=== PATIENT | male | born 1945 | race Caucasian/White ===

== ENCOUNTER 2018-11-26 15:31 | Observation (INO) | payer OTHER, MEDICARE ==
[2018-11-26] MEDS ORDERED: Sodium Chloride 0.9% 2.5 ML Syringe FLUSH PRN (15:34)
[2018-11-26] MEDS ORDERED: Sodium Chloride 0.9% 10 ML Syringe FLUSH PRN (15:34)
--- NOTE | 2018-11-26 15:34 | EDM.PDOC ---
ED HPI GENERAL MEDICAL PROBLEM - General Chief Complaint: Cardiovascular Problem Stated Complaint: AMB Time Seen by Provider: 11/26/18 15:32 - History of Present Illness INITIAL COMMENTS - FREE TEXT/NARRATIVE: HISTORY AND PHYSICAL: History of present illness: Patient is 73-year-old white male with past medical history significant for cardiac pacemaker who presents after having had a syncopal episode while driving with his daughter she states he had approximately 3 minutes of unresponsiveness there was reported snoring during this episode but upon arrival patient has no complaints other than the need to urinate there is no seizure activity noted there is no recent trauma or other concern patient denies chest pain shortness of breath palpitations diaphoresis or other concern Review of systems: As per history of present illness and below otherwise all systems reviewed and negative. Past medical history: As per history of present illness and as reviewed below otherwise noncontributory. Surgical history: As per history of present illness and as reviewed below otherwise noncontributory. Social history: No reported history of drug or alcohol abuse. Family history: As per history of present illness and as reviewed below otherwise noncontributory. Physical exam: HEENT: Atraumatic, normocephalic, pupils reactive, negative for conjunctival pallor or scleral icterus, mucous membranes moist, throat clear, neck supple, nontender, trachea midline. Lungs: Clear to auscultation, breath sounds equal bilaterally, chest nontender. Heart: S1S2, regular, negative for clicks, rubs, or JVD. Abdomen: Soft, nondistended, nontender. Negative for masses or hepatosplenomegaly. Negative for costovertebral tenderness. Pelvis: Stable nontender. Genitourinary: Deferred. Rectal: Deferred. Extremities: Atraumatic, negative for cords or calf pain. Neurovascular unremarkable. Neuro: Awake, alert, oriented. Cranial nerves II through XII unremarkable. Cerebellum unremarkable. Motor and sensory unremarkable throughout. Exam nonfocal. Diagnostics: CBC CMP troponin PT/INR chest x-ray EKG CT brain Therapeutics: IV O2 monitor Impression: #1 syncope Definitive disposition and diagnosis as appropriate pending reevaluation and review of above. - Related Data Allergies Allergy/AdvReac Type Severity Reaction Status Date / Time No Known Allergies Allergy Verified 11/26/18 16:29 Home Meds: Home Meds Aspirin 81 mg PO DAILY 11/26/18 [History] Bumetanide [Bumex] 2 mg PO BID 11/26/18 [History] Dabigatran [Pradaxa] 150 mg PO BID 11/26/18 [History] Non-Formulary Medication [NF Drug] 11/26/18 [History] Potassium Chloride 20 meq PO TID 11/26/18 [History] Sertraline HCl [Zoloft] 100 mg PO DAILY 11/26/18 [History] Tamsulosin [Flomax] 1 cap PO DAILY 11/26/18 [History] atorvaSTATin Calcium [Lipitor] 40 mg PO DAILY 11/26/18 [History] ED ROS GENERAL - Review of Systems Review Of Systems: ROS reveals no pertinent complaints other than HPI. ED EXAM, GENERAL - Physical Exam Exam: See Below (The dictation) Course - Vital Signs Last Recorded V/S: Last Vital Signs Temp 36.5 C 11/26/18 15:35 Pulse 78 11/26/18 15:35 Resp 20 11/26/18 15:35 BP 108/65 11/26/18 15:35 Pulse Ox 95 11/26/18 15:35 - Orders/Labs/Meds Orders: Active Orders 24 hr Category Date Time Status EKG 12 Lead [EKG Documentation Completion] [RC] STAT Care 11/26/18 15:32 Active B-TYPE NATRIURETIC PEPTIDE,BNP [CHEM] Stat Lab 11/26/18 16:20 Received PROLACTIN [CHEM] Stat Lab 11/26/18 17:00 Ordered Sodium Chloride 0.9% [Normal Saline] 1,000 ml Med 11/26/18 15:45 Active IV ASDIRECTED Sodium Chloride 0.9% [Saline Flush] Med 11/26/18 15:34 Active 10 ml FLUSH ASDIRECTED PRN Sodium Chloride 0.9% [Saline Flush] Med 11/26/18 15:34 Active 2.5 ml FLUSH ASDIRECTED PRN Saline Lock Insert [OM.PC] Stat Oth 11/26/18 15:34 Ordered Medication Orders Sodium Chloride (Normal Saline) 1,000 mls @ 125 mls/hr IV ASDIRECTED FRANCES Sodium Chloride (Saline Flush) 10 ml FLUSH ASDIRECTED PRN PRN Reason: Keep Vein Open Sodium Chloride (Saline Flush) 2.5 ml FLUSH ASDIRECTED PRN PRN Reason: Keep Vein Open Labs: Laboratory Tests 11/26/18 11/26/18 11/26/18 Range/Units 16:00 16:20 16:20 WBC 6.89 (4.0-11.0) K/uL RBC 3.41 L (4.50-5.90) M/uL Hgb 9.8 L (13.0-17.0) g/dL Hct 31.4 L (38.0-50.0) % MCV 92.1 (80.0-98.0) fL MCH 28.7 (27.0-32.0) pg MCHC 31.2 (31.0-37.0) g/dL RDW Std Deviation 45.6 (28.0-62.0) fl RDW Coeff of Jennifer 14 (11.0-15.0) % Plt Count 213 (150-400) K/uL MPV 10.30 (7.40-12.00) fL Neut % (Auto) 67.3 (48.0-80.0) % Lymph % (Auto) 14.7 L (16.0-40.0) % [place] % (Auto) 13.9 (0.0-15.0) % Eos % (Auto) 3.5 (0.0-7.0) % Baso % (Auto) 0.6 (0.0-1.5) % Neut # (Auto) 4.6 (1.4-5.7) K/uL Lymph # (Auto) 1.0 (0.6-2.4) K/uL [place] # (Auto) 1.0 H (0.0-0.8) K/uL Eos # (Auto) 0.2 (0.0-0.7) K/uL Baso # (Auto) 0.0 (0.0-0.1) K/uL Nucleated RBC % 0.0 /100WBC Nucleated RBCs # 0 K/uL INR 2.13 Sodium (136-148) mmol/L Potassium (3.5-5.1) mmol/L Chloride (98-107) mmol/L Carbon Dioxide (21.0-32.0) mmol/L BUN (7.0-18.0) mg/dL Creatinine (0.8-1.3) mg/dL Est Cr Clr Drug Dosing mL/min Estimated GFR (MDRD) ml/min Glucose (74-106) mg/dL Calcium (8.5-10.1) mg/dL Total Bilirubin (0.2-1.0) mg/dL AST (15-37) IU/L ALT (14-63) IU/L Alkaline Phosphatase (46-116) U/L Troponin I (0.000-0.056) ng/mL Total Protein (6.4-8.2) g/dL Albumin (3.4-5.0) g/dL Globulin (2.6-4.0) g/dL Albumin/Globulin Ratio (0.9-1.6) Urine Color YELLOW Urine Appearance CLEAR Urine pH 7.0 (5.0-8.0) Ur Specific [place] 1.015 (1.001-1.035) Urine Protein TRACE H (NEGATIVE) mg/dL Urine Glucose (UA) NEGATIVE (NEGATIVE) mg/dL Urine Ketones NEGATIVE (NEGATIVE) mg/dL Urine Occult Blood NEGATIVE (NEGATIVE) Urine Nitrite NEGATIVE (NEGATIVE) Urine Bilirubin NEGATIVE (NEGATIVE) Urine Urobilinogen 0.2 (<2.0) EU/dL Ur Leukocyte Esterase NEGATIVE (NEGATIVE) Urine RBC 0-1 (0-2/HPF) Urine WBC 0-1 (0-5/HPF) Ur Epithelial Cells RARE (NONE-FEW) Urine Bacteria RARE (NEGATIVE) 11/26/18 Range/Units 16:20 WBC (4.0-11.0) K/uL RBC (4.50-5.90) M/uL Hgb (13.0-17.0) g/dL Hct (38.0-50.0) % MCV (80.0-98.0) fL MCH (27.0-32.0) pg MCHC (31.0-37.0) g/dL RDW Std Deviation (28.0-62.0) fl RDW Coeff of Jennifer (11.0-15.0) % Plt Count (150-400) K/uL MPV (7.40-12.00) fL Neut % (Auto) (48.0-80.0) % Lymph % (Auto) (16.0-40.0) % [place] % (Auto) (0.0-15.0) % Eos % (Auto) (0.0-7.0) % Baso % (Auto) (0.0-1.5) % Neut # (Auto) (1.4-5.7) K/uL Lymph # (Auto) (0.6-2.4) K/uL [place] # (Auto) (0.0-0.8) K/uL Eos # (Auto) (0.0-0.7) K/uL Baso # (Auto) (0.0-0.1) K/uL Nucleated RBC % /100WBC Nucleated RBCs # K/uL INR Sodium 143 (136-148) mmol/L Potassium 3.3 L (3.5-5.1) mmol/L Chloride 104 (98-107) mmol/L Carbon Dioxide 31.7 (21.0-32.0) mmol/L BUN 18 (7.0-18.0) mg/dL Creatinine 1.0 (0.8-1.3) mg/dL Est Cr Clr Drug Dosing 70.06 mL/min Estimated GFR (MDRD) > 60.0 ml/min Glucose 109 H (74-106) mg/dL Calcium 9.2 (8.5-10.1) mg/dL Total Bilirubin 0.9 (0.2-1.0) mg/dL AST 18 (15-37) IU/L ALT 13 L (14-63) IU/L Alkaline Phosphatase 268 H (46-116) U/L Troponin I 0.074 H* (0.000-0.056) ng/mL Total Protein 6.9 (6.4-8.2) g/dL Albumin 3.1 L (3.4-5.0) g/dL Globulin 3.8 (2.6-4.0) g/dL Albumin/Globulin Ratio 0.8 L (0.9-1.6) Urine Color Urine Appearance Urine pH (5.0-8.0) Ur Specific [place] (1.001-1.035) Urine Protein (NEGATIVE) mg/dL Urine Glucose (UA) (NEGATIVE) mg/dL Urine Ketones (NEGATIVE) mg/dL Urine Occult Blood (NEGATIVE) Urine Nitrite (NEGATIVE) Urine Bilirubin (NEGATIVE) Urine Urobilinogen (<2.0) EU/dL Ur Leukocyte Esterase (NEGATIVE) Urine RBC (0-2/HPF) Urine WBC (0-5/HPF) Ur Epithelial Cells (NONE-FEW) Urine Bacteria (NEGATIVE) Meds: Medications Generic Name Dose Route Start Last Admin Trade Name Radha PRN Reason Stop Dose Admin Sodium Chloride 1,000 mls @ 125 mls/hr 11/26/18 15:45 Normal Saline IV ASDIRECTED FRANCES Sodium Chloride 10 ml 11/26/18 15:34 Saline Flush FLUSH ASDIRECTED PRN Keep Vein Open Sodium Chloride 2.5 ml 11/26/18 15:34 Saline Flush FLUSH ASDIRECTED PRN Keep Vein Open Discontinued Medications Generic Name Dose Route Start Last Admin Trade Name Radha PRN Reason Stop Dose Admin Ondansetron HCl 4 mg 11/26/18 15:47 11/26/18 16:00 Zofran IVPUSH 11/26/18 15:48 4 mg ONETIME ONE Administration Ondansetron HCl Confirm 11/26/18 15:49 11/26/18 16:00 Zofran Administered 11/26/18 15:50 Not Given Dose 4 mg .ROUTE .STK-MED ONE Departure - Departure Time of Disposition: 17:00 Disposition: Refer to Observation Condition: Good Clinical Impression: Syncope, Elevated troponin, History of CHF (congestive heart failure) Forms: ED Department Discharge - My Orders Last 24 Hours: My Active Orders 11/26/18 15:32 EKG 12 Lead [EKG Documentation Completion] [RC] STAT 11/26/18 15:34 Sodium Chloride 0.9% [Saline Flush] 10 ml FLUSH ASDIRECTED PRN Sodium Chloride 0.9% [Saline Flush] 2.5 ml FLUSH ASDIRECTED PRN Saline Lock Insert [OM.PC] Stat 11/26/18 15:45 Sodium Chloride 0.9% [Normal Saline] 1,000 ml IV ASDIRECTED 11/26/18 16:20 B-TYPE NATRIURETIC PEPTIDE,BNP [CHEM] Stat 11/26/18 17:00 PROLACTIN [CHEM] Stat - Assessment/Plan Last 24 Hours: My Active Orders 11/26/18 15:32 EKG 12 Lead [EKG Documentation Completion] [RC] STAT 11/26/18 15:34 Sodium Chloride 0.9% [Saline Flush] 10 ml FLUSH ASDIRECTED PRN Sodium Chloride 0.9% [Saline Flush] 2.5 ml FLUSH ASDIRECTED PRN Saline Lock Insert [OM.PC] Stat 11/26/18 15:45 Sodium Chloride 0.9% [Normal Saline] 1,000 ml IV ASDIRECTED 11/26/18 16:20 B-TYPE NATRIURETIC PEPTIDE,BNP [CHEM] Stat 11/26/18 17:00 PROLACTIN [CHEM] Stat
[2018-11-26] MEDS ORDERED: Ondansetron 4 MG/2 ML SDV IVPUSH ONE (15:47)
[2018-11-26] MEDS ORDERED: Ondansetron 4 MG/2 ML SDV ONE (15:49)
[2018-11-26] MEDS: Sodium Chloride 0.9% 1,000 ML IV SCH ×2 (16:00→19:37)
--- NOTE | 2018-11-26 16:15 | CT ---
INDICATION: Syncope TECHNIQUE: Non-contrast CT of the head is submitted. No comparisons. FINDINGS: The ventricles, sulci and gyri are of normal size, shape and contour. Midline structures are centrally located. No convincing evidence of intra- or extra-axial fluid collections. IMPRESSION: 1. No radiographic evidence of acute intracranial abnormalities. Dictated by Domo Francis MD @ 11/26/2018 4:13:20 PM Please note that all CT scans at this facility use dose modulation, iterative reconstruction, and/or weight-based dosing when appropriate to reduce radiation dose to as low as reasonably achievable. Dictated by: Domo Francis MD @ 11/26/2018 16:13:26 (Electronically Signed)
--- NOTE | 2018-11-26 16:33 | CR ---
INDICATION: Syncope. TECHNIQUE: AP upright portable chest. FINDINGS: Left lower lobe infiltrate and/or atelectasis. Clear right lung. Slight cardiac enlargement. Left-sided pacemaker/ICD with lead tips in the right atrium and right ventricle. Degenerative change of the shoulders. IMPRESSION: Left lower lobe infiltrate and/or atelectasis. Comparison with any previous chest x-rays suggested versus followup radiographs after appropriate technique. Dictated by Uziel Ireland MD @ Nov 26 2018 4:32PM Signed by Dr. Uziel Ireland @ Nov 26 2018 4:33PM
[2018-11-26 16:52] LABS: BLOOD UREA NITROGEN,BUN 18 mg/dL (7.0-18.0); CARBON DIOXIDE,CO2 31.7 mmol/L (21.0-32.0); CHLORIDE,CL 104 mmol/L (98-107); GLUCOSE RANDOM 109 mg/dL (74-106); POTASSIUM,K 3.3 mmol/L (3.5-5.1); SODIUM,NA 143 mmol/L (136-148)
--- NOTE | 2018-11-26 17:41 | PCM.HP.2 ---
H&P History of Present Illness - General Date of Service: 11/26/18 Admit Problem/Dx: Admission Diagnosis/Problem Admission Diagnosis/Problem Syncope - History of Present Illness Initial Comments - Free Text/Narative: The patient is a 73-year-old male with past medical history of A. fib, CHF, hypertension, pacemaker and NE who was traveling in the car with his daughter and slumped over. Daughter pulled over and tried to wake him up by a saying his name and shaking him, but he was out for 1-2 minutes. Daughter stated that he was breathing funny. When he woke up, daughter denied slurred speech, facial droop, seizure-like activity, but that he was a little confused. Patient denies any chest pain, fever, chills, cough, black/bloody stools, or abdominal pain. He does endorse shortness of breath, worse with exertion. Patient had a pacemaker placed into August early September for heart block and syncope. He was recently seen by his supervisor forming department in [place] on November 08 and was told he was doing well. He denies any lung diseases. He denies increased edema. In the ER, they did a CT of his head which was negative for acute findings. A chest x-ray that showed a left pneumonia. Labs showed no white count, he was anemic with a hemoglobin of 9.8, slightly hypokalemic at 3.3. He did have an elevated troponin at 0.074 and elevated BNP at 453. EKG showed atrial and ventricular paced rhythm. Patient had vomiting in the ER and was given zofran. He no longer feels nauseous. - Related Data Allergies/Adverse Reactions: Allergies Allergy/AdvReac Type Severity Reaction Status Date / Time No Known Allergies Allergy Verified 11/26/18 16:29 Home Medications: Home Meds Aspirin 81 mg PO DAILY 11/26/18 [History] Bumetanide [Bumex] 2 mg PO BID 11/26/18 [History] Dabigatran [Pradaxa] 150 mg PO BID 11/26/18 [History] Non-Formulary Medication [NF Drug] 11/26/18 [History] Potassium Chloride 20 meq PO TID 11/26/18 [History] Sertraline HCl [Zoloft] 100 mg PO DAILY 11/26/18 [History] Tamsulosin [Flomax] 1 cap PO DAILY 11/26/18 [History] atorvaSTATin Calcium [Lipitor] 40 mg PO DAILY 11/26/18 [History] Past Medical History HEENT History: Reports: Impaired Vision Cardiovascular History: Reports: Heart Failure, High Cholesterol, Hypertension, NE, Pacemaker, Stents Respiratory History: Reports: None Gastrointestinal History: Reports: None, GI Bleed, Other (See Below) Other Gastrointestinal History: severe inflammatory changes in the colon requiring surgical intervention Genitourinary History: Reports: Prostate Disorder, Other (See Below) Other Genitourinary History: overactive bladder Neurological History: Reports: Other (See Below) Other Neuro History: progressive short term memory loss and cognitive decline Psychiatric History: Reports: Depression, Other (See Below) Other Psychiatric History: history of hospital stay induced delerium Endocrine/Metabolic History: Reports: None Hematologic History: Reports: Anemia, Blood Transfusion(s) - Past Surgical History Cardiovascular Surgical History: Reports: Coronary Artery Stent GI Surgical History: Reports: Cholecystectomy, Other (See Below) Other GI Surgeries/Procedures: R hemicollectomy Musculoskeletal Surgical History: Reports: Knee Replacement Other Musculoskeletal Surgeries/Procedures:: bilat artificial knees Social & Family History - Tobacco Use Smoking Status *Q: Former Smoker Used Tobacco, but Quit: Yes Month/Year Tobacco Last Used: 1979 - Alcohol Use Alcohol Use History: No - Recreational Drug Use Recreational Drug Use: No H&P Review of Systems - Review of Systems: Review Of Systems: See Below General: Reports: No Symptoms HEENT: Reports: No Symptoms Pulmonary: Reports: Shortness of Breath. Denies: Cough, Sputum Cardiovascular: Reports: Dyspnea on Exertion, Syncope. Denies: Chest Pain, Palpitations, Edema Gastrointestinal: Reports: Nausea, Vomiting. Denies: Abdominal Pain, Black Stool, Bloody Stool, Constipation, Diarrhea Genitourinary: Reports: No Symptoms Musculoskeletal: Reports: No Symptoms Skin: Reports: No Symptoms Psychiatric: Reports: No Symptoms Neurological: Reports: No Symptoms Hematologic/Lymphatic: Reports: Anemia Immunologic: Reports: No Symptoms Exam - Exam Exam: See Below - Vital Signs Vital Signs: Last Vital Signs Temp 97.7 F 11/26/18 15:35 Pulse 78 11/26/18 15:35 Resp 20 11/26/18 15:35 BP 108/65 11/26/18 15:35 Pulse Ox 95 11/26/18 15:35 Weight: 108.862 kg - Exam General: Alert, Oriented, Cooperative HEENT: Conjunctiva Clear, Mucosa Moist & [place], Posterior Pharynx Clear, Pupils Equal, Pupils Reactive Neck: Supple, Trachea Midline Lungs: Normal Respiratory Effort, Crackles (left base) Cardiovascular: Regular Rate, Regular Rhythm GI/Abdominal Exam: Normal Bowel Sounds, Soft, Non-Tender, No Distention Extremities: No Pedal Edema Skin: Warm, Dry, Intact Neuro Extensive - Mental Status: Alert, Oriented x3 Psychiatric: Alert, Normal Affect, Normal Mood - Patient Data Lab Results Last 24 hrs: Laboratory Results - last 24 hr 11/26/18 11/26/18 11/26/18 Range/Units 16:00 16:20 16:20 WBC 6.89 (4.0-11.0) K/uL RBC 3.41 L (4.50-5.90) M/uL Hgb 9.8 L (13.0-17.0) g/dL Hct 31.4 L (38.0-50.0) % MCV 92.1 (80.0-98.0) fL MCH 28.7 (27.0-32.0) pg MCHC 31.2 (31.0-37.0) g/dL RDW Std Deviation 45.6 (28.0-62.0) fl RDW Coeff of Jennifer 14 (11.0-15.0) % Plt Count 213 (150-400) K/uL MPV 10.30 (7.40-12.00) fL Neut % (Auto) 67.3 (48.0-80.0) % Lymph % (Auto) 14.7 L (16.0-40.0) % [place] % (Auto) 13.9 (0.0-15.0) % Eos % (Auto) 3.5 (0.0-7.0) % Baso % (Auto) 0.6 (0.0-1.5) % Neut # (Auto) 4.6 (1.4-5.7) K/uL Lymph # (Auto) 1.0 (0.6-2.4) K/uL [place] # (Auto) 1.0 H (0.0-0.8) K/uL Eos # (Auto) 0.2 (0.0-0.7) K/uL Baso # (Auto) 0.0 (0.0-0.1) K/uL Nucleated RBC % 0.0 /100WBC Nucleated RBCs # 0 K/uL INR 2.13 Sodium (136-148) mmol/L Potassium (3.5-5.1) mmol/L Chloride (98-107) mmol/L Carbon Dioxide (21.0-32.0) mmol/L BUN (7.0-18.0) mg/dL Creatinine (0.8-1.3) mg/dL Est Cr Clr Drug Dosing mL/min Estimated GFR (MDRD) ml/min Glucose (74-106) mg/dL Calcium (8.5-10.1) mg/dL Total Bilirubin (0.2-1.0) mg/dL AST (15-37) IU/L ALT (14-63) IU/L Alkaline Phosphatase (46-116) U/L Troponin I (0.000-0.056) ng/mL B-Natriuretic Peptide (<100) PG/ML Total Protein (6.4-8.2) g/dL Albumin (3.4-5.0) g/dL Globulin (2.6-4.0) g/dL Albumin/Globulin Ratio (0.9-1.6) Urine Color YELLOW Urine Appearance CLEAR Urine pH 7.0 (5.0-8.0) Ur Specific [place] 1.015 (1.001-1.035) Urine Protein TRACE H (NEGATIVE) mg/dL Urine Glucose (UA) NEGATIVE (NEGATIVE) mg/dL Urine Ketones NEGATIVE (NEGATIVE) mg/dL Urine Occult Blood NEGATIVE (NEGATIVE) Urine Nitrite NEGATIVE (NEGATIVE) Urine Bilirubin NEGATIVE (NEGATIVE) Urine Urobilinogen 0.2 (<2.0) EU/dL Ur Leukocyte Esterase NEGATIVE (NEGATIVE) Urine RBC 0-1 (0-2/HPF) Urine WBC 0-1 (0-5/HPF) Ur Epithelial Cells RARE (NONE-FEW) Urine Bacteria RARE (NEGATIVE) 11/26/18 11/26/18 Range/Units 16:20 16:20 WBC (4.0-11.0) K/uL RBC (4.50-5.90) M/uL Hgb (13.0-17.0) g/dL Hct (38.0-50.0) % MCV (80.0-98.0) fL MCH (27.0-32.0) pg MCHC (31.0-37.0) g/dL RDW Std Deviation (28.0-62.0) fl RDW Coeff of Jennifer (11.0-15.0) % Plt Count (150-400) K/uL MPV (7.40-12.00) fL Neut % (Auto) (48.0-80.0) % Lymph % (Auto) (16.0-40.0) % [place] % (Auto) (0.0-15.0) % Eos % (Auto) (0.0-7.0) % Baso % (Auto) (0.0-1.5) % Neut # (Auto) (1.4-5.7) K/uL Lymph # (Auto) (0.6-2.4) K/uL [place] # (Auto) (0.0-0.8) K/uL Eos # (Auto) (0.0-0.7) K/uL Baso # (Auto) (0.0-0.1) K/uL Nucleated RBC % /100WBC Nucleated RBCs # K/uL INR Sodium 143 (136-148) mmol/L Potassium 3.3 L (3.5-5.1) mmol/L Chloride 104 (98-107) mmol/L Carbon Dioxide 31.7 (21.0-32.0) mmol/L BUN 18 (7.0-18.0) mg/dL Creatinine 1.0 (0.8-1.3) mg/dL Est Cr Clr Drug Dosing 70.06 mL/min Estimated GFR (MDRD) > 60.0 ml/min Glucose 109 H (74-106) mg/dL Calcium 9.2 (8.5-10.1) mg/dL Total Bilirubin 0.9 (0.2-1.0) mg/dL AST 18 (15-37) IU/L ALT 13 L (14-63) IU/L Alkaline Phosphatase 268 H (46-116) U/L Troponin I 0.074 H* (0.000-0.056) ng/mL B-Natriuretic Peptide 453 H (<100) PG/ML Total Protein 6.9 (6.4-8.2) g/dL Albumin 3.1 L (3.4-5.0) g/dL Globulin 3.8 (2.6-4.0) g/dL Albumin/Globulin Ratio 0.8 L (0.9-1.6) Urine Color Urine Appearance Urine pH (5.0-8.0) Ur Specific [place] (1.001-1.035) Urine Protein (NEGATIVE) mg/dL Urine Glucose (UA) (NEGATIVE) mg/dL Urine Ketones (NEGATIVE) mg/dL Urine Occult Blood (NEGATIVE) Urine Nitrite (NEGATIVE) Urine Bilirubin (NEGATIVE) Urine Urobilinogen (<2.0) EU/dL Ur Leukocyte Esterase (NEGATIVE) Urine RBC (0-2/HPF) Urine WBC (0-5/HPF) Ur Epithelial Cells (NONE-FEW) Urine Bacteria (NEGATIVE) Result Diagrams: 11/26/18 16:20 11/26/18 16:20 Problem List Initiated/Reviewed/Updated: Yes Orders Last 24hrs: Active Orders 24 hr Category Date Time Status Patient Status [ADT] Stat ADT 11/26/18 17:02 Active EKG 12 Lead [EKG Documentation Completion] [RC] STAT Care 11/26/18 15:32 Active Telemetry Monitoring [Cardiac Monitoring] [RC] . Care 11/26/18 17:17 Active DIRECTED PROLACTIN [CHEM] Stat Lab 11/26/18 16:20 Received Sodium Chloride 0.9% [Normal Saline] 1,000 ml Med 11/26/18 15:45 Active IV ASDIRECTED Sodium Chloride 0.9% [Saline Flush] Med 11/26/18 15:34 Active 10 ml FLUSH ASDIRECTED PRN Sodium Chloride 0.9% [Saline Flush] Med 11/26/18 15:34 Active 2.5 ml FLUSH ASDIRECTED PRN Saline Lock Insert [OM.PC] Stat Oth 11/26/18 15:34 Ordered Medication Orders Sodium Chloride (Normal Saline) 1,000 mls @ 125 mls/hr IV ASDIRECTED FRANCES Sodium Chloride (Saline Flush) 10 ml FLUSH ASDIRECTED PRN PRN Reason: Keep Vein Open Sodium Chloride (Saline Flush) 2.5 ml FLUSH ASDIRECTED PRN PRN Reason: Keep Vein Open Assessment/Plan Comment:: 1. Admit for observation 2. Code status- full 3. Vitals per routine 4. I/Os strict 5. Diet- heart healthy 6. DVT prophylaxis- on anticoagulation 7. CA Pneumonia- will obtain sputum culture and start on Levaquin, encourage incentive spirometer 8. Syncope- monitor on telemetry, obtain orthostatic vitals, will try to consult cardiology to look at pacemaker data 9. Elevated troponin- recent pacemaker placement- will trend, patient currently chest pain free 10. Anemia- hx of GI bleed requiring hemicolectomy- denies black/bloody stools, will monitor with CBC 11. Chronic conditions- CHF, hyperlipidemia, Afib- continue home meds, daily weights for CHF 12. Hypokalemia- will replace with 40 mEq and recheck in Am
[2018-11-26] MEDS ORDERED: Potassium Chloride 20 MEQ Tab.ER PO ONE (17:49)
[2018-11-26] MEDS ORDERED: Acetaminophen 325 MG Tab PO PRN (17:49)
[2018-11-26] MEDS: Levofloxacin/Dextrose 5%-Water 750 MG in Premix Bag 1 BAG IV SCH (18:38)
[2018-11-26] MEDS: Bumetanide 1 MG Tab PO SCH (20:24)
[2018-11-26] MEDS: Potassium Chloride 20 MEQ Tab.ER PO SCH ×2 (20:24→21:02)
[2018-11-27 04:56] LABS: BLOOD UREA NITROGEN,BUN 19 mg/dL (7.0-18.0); CARBON DIOXIDE,CO2 29.8 mmol/L (21.0-32.0); CHLORIDE,CL 104 mmol/L (98-107); GLUCOSE RANDOM 103 mg/dL (74-106); POTASSIUM,K 4.5 mmol/L (3.5-5.1); SODIUM,NA 143 mmol/L (136-148)
[2018-11-27] MEDS: Potassium Chloride 20 MEQ Tab.ER PO SCH ×3 (07:31→22:43)
[2018-11-27] MEDS: Ondansetron 4 MG/2 ML SDV IVPUSH PRN ×2 (07:39→21:26)
[2018-11-27] MEDS: Bumetanide 1 MG Tab PO SCH ×2 (08:49→13:46)
[2018-11-27] MEDS: Sertraline 100 MG Tab PO SCH (08:49)
[2018-11-27] MEDS ORDERED: atorvaSTATin 40 MG Tab PO SCH ×2 (09:00→21:00)
--- NOTE | 2018-11-27 10:48 | PCM.PN ---
- General Info Date of Service: 11/27/18 Subjective Update: P admitted for syncopal episode, elevated troponins and pneumonia. Today patient denies any chest pain. Reports his shortness of breath is better. No abdominal pain. He did have some nausea this morning. He was monitored on telemetry, which shows that he was paced without any significant abnormalities. - Review of Systems General: Reports: No Symptoms HEENT: Reports: No Symptoms Pulmonary: Reports: No Symptoms Cardiovascular: Reports: No Symptoms Gastrointestinal: Reports: No Symptoms Genitourinary: Reports: No Symptoms Musculoskeletal: Reports: No Symptoms Skin: Reports: No Symptoms Neurological: Reports: No Symptoms Psychiatric: Reports: No Symptoms - Patient Data Vitals - Most Recent: Last Vital Signs Temp 98.1 F 11/27/18 07:50 Pulse 69 11/27/18 07:50 Resp 17 11/27/18 07:50 BP 116/55 L 11/27/18 07:50 Pulse Ox 95 11/27/18 07:50 Orthostatic Blood Pressure [ 102/48 Sitting] Weight - Most Recent: 97.069 kg I&O - Last 24 Hours: Intake & Output 11/26/18 11/27/18 11/27/18 22:59 06:59 14:59 Intake Total 150 1000 Output Total 725 Balance 150 275 Lab Results Last 24 Hours: Laboratory Results - last 24 hr 11/26/18 11/26/18 11/26/18 Range/Units 16:00 16:20 16:20 WBC 6.89 (4.0-11.0) K/uL RBC 3.41 L (4.50-5.90) M/uL Hgb 9.8 L (13.0-17.0) g/dL Hct 31.4 L (38.0-50.0) % MCV 92.1 (80.0-98.0) fL MCH 28.7 (27.0-32.0) pg MCHC 31.2 (31.0-37.0) g/dL RDW Std Deviation 45.6 (28.0-62.0) fl RDW Coeff of Jennifer 14 (11.0-15.0) % Plt Count 213 (150-400) K/uL MPV 10.30 (7.40-12.00) fL Neut % (Auto) 67.3 (48.0-80.0) % Lymph % (Auto) 14.7 L (16.0-40.0) % Ashley % (Auto) 13.9 (0.0-15.0) % Eos % (Auto) 3.5 (0.0-7.0) % Baso % (Auto) 0.6 (0.0-1.5) % Neut # (Auto) 4.6 (1.4-5.7) K/uL Lymph # (Auto) 1.0 (0.6-2.4) K/uL Ashley # (Auto) 1.0 H (0.0-0.8) K/uL Eos # (Auto) 0.2 (0.0-0.7) K/uL Baso # (Auto) 0.0 (0.0-0.1) K/uL Add Manual Diff Neutrophils % (Manual) (48.0-80.0) % Band Neutrophils % % Lymphocytes % (Manual) (16.0-40.0) % Monocytes % (Manual) (0.0-15.0) % Nucleated RBC % 0.0 /100WBC Absolute Seg Neuts (1.4-5.7) Band Neutrophils # Lymphocytes # (Manual) (0.6-2.4) Monocytes # (Manual) (0.0-0.8) Nucleated RBCs # 0 K/uL INR 2.13 Sodium (136-148) mmol/L Potassium (3.5-5.1) mmol/L Chloride (98-107) mmol/L Carbon Dioxide (21.0-32.0) mmol/L BUN (7.0-18.0) mg/dL Creatinine (0.8-1.3) mg/dL Est Cr Clr Drug Dosing mL/min Estimated GFR (MDRD) ml/min Glucose (74-106) mg/dL Calcium (8.5-10.1) mg/dL Total Bilirubin (0.2-1.0) mg/dL AST (15-37) IU/L ALT (14-63) IU/L Alkaline Phosphatase (46-116) U/L Troponin I (0.000-0.056) ng/mL B-Natriuretic Peptide (<100) PG/ML Total Protein (6.4-8.2) g/dL Albumin (3.4-5.0) g/dL Globulin (2.6-4.0) g/dL Albumin/Globulin Ratio (0.9-1.6) Prolactin ng/mL Urine Color YELLOW Urine Appearance CLEAR Urine pH 7.0 (5.0-8.0) Ur Specific [place] 1.015 (1.001-1.035) Urine Protein TRACE H (NEGATIVE) mg/dL Urine Glucose (UA) NEGATIVE (NEGATIVE) mg/dL Urine Ketones NEGATIVE (NEGATIVE) mg/dL Urine Occult Blood NEGATIVE (NEGATIVE) Urine Nitrite NEGATIVE (NEGATIVE) Urine Bilirubin NEGATIVE (NEGATIVE) Urine Urobilinogen 0.2 (<2.0) EU/dL Ur Leukocyte Esterase NEGATIVE (NEGATIVE) Urine RBC 0-1 (0-2/HPF) Urine WBC 0-1 (0-5/HPF) Ur Epithelial Cells RARE (NONE-FEW) Urine Bacteria RARE (NEGATIVE) 11/26/18 11/26/18 11/26/18 Range/Units 16:20 16:20 16:20 WBC (4.0-11.0) K/uL RBC (4.50-5.90) M/uL Hgb (13.0-17.0) g/dL Hct (38.0-50.0) % MCV (80.0-98.0) fL MCH (27.0-32.0) pg MCHC (31.0-37.0) g/dL RDW Std Deviation (28.0-62.0) fl RDW Coeff of Jennifer (11.0-15.0) % Plt Count (150-400) K/uL MPV (7.40-12.00) fL Neut % (Auto) (48.0-80.0) % Lymph % (Auto) (16.0-40.0) % Ashley % (Auto) (0.0-15.0) % Eos % (Auto) (0.0-7.0) % Baso % (Auto) (0.0-1.5) % Neut # (Auto) (1.4-5.7) K/uL Lymph # (Auto) (0.6-2.4) K/uL Ashley # (Auto) (0.0-0.8) K/uL Eos # (Auto) (0.0-0.7) K/uL Baso # (Auto) (0.0-0.1) K/uL Add Manual Diff Neutrophils % (Manual) (48.0-80.0) % Band Neutrophils % % Lymphocytes % (Manual) (16.0-40.0) % Monocytes % (Manual) (0.0-15.0) % Nucleated RBC % /100WBC Absolute Seg Neuts (1.4-5.7) Band Neutrophils # Lymphocytes # (Manual) (0.6-2.4) Monocytes # (Manual) (0.0-0.8) Nucleated RBCs # K/uL INR Sodium 143 (136-148) mmol/L Potassium 3.3 L (3.5-5.1) mmol/L Chloride 104 (98-107) mmol/L Carbon Dioxide 31.7 (21.0-32.0) mmol/L BUN 18 (7.0-18.0) mg/dL Creatinine 1.0 (0.8-1.3) mg/dL Est Cr Clr Drug Dosing 70.06 mL/min Estimated GFR (MDRD) > 60.0 ml/min Glucose 109 H (74-106) mg/dL Calcium 9.2 (8.5-10.1) mg/dL Total Bilirubin 0.9 (0.2-1.0) mg/dL AST 18 (15-37) IU/L ALT 13 L (14-63) IU/L Alkaline Phosphatase 268 H (46-116) U/L Troponin I 0.074 H* (0.000-0.056) ng/mL B-Natriuretic Peptide 453 H (<100) PG/ML Total Protein 6.9 (6.4-8.2) g/dL Albumin 3.1 L (3.4-5.0) g/dL Globulin 3.8 (2.6-4.0) g/dL Albumin/Globulin Ratio 0.8 L (0.9-1.6) Prolactin 25.4 ng/mL Urine Color Urine Appearance Urine pH (5.0-8.0) Ur Specific [place] (1.001-1.035) Urine Protein (NEGATIVE) mg/dL Urine Glucose (UA) (NEGATIVE) mg/dL Urine Ketones (NEGATIVE) mg/dL Urine Occult Blood (NEGATIVE) Urine Nitrite (NEGATIVE) Urine Bilirubin (NEGATIVE) Urine Urobilinogen (<2.0) EU/dL Ur Leukocyte Esterase (NEGATIVE) Urine RBC (0-2/HPF) Urine WBC (0-5/HPF) Ur Epithelial Cells (NONE-FEW) Urine Bacteria (NEGATIVE) 11/26/18 11/27/18 11/27/18 Range/Units 22:40 04:20 04:20 WBC 8.01 (4.0-11.0) K/uL RBC 3.44 L (4.50-5.90) M/uL Hgb 10.0 L (13.0-17.0) g/dL Hct 31.8 L (38.0-50.0) % MCV 92.4 (80.0-98.0) fL MCH 29.1 (27.0-32.0) pg MCHC 31.4 (31.0-37.0) g/dL RDW Std Deviation 46.3 (28.0-62.0) fl RDW Coeff of Jennifer 14 (11.0-15.0) % Plt Count 241 (150-400) K/uL MPV 11.00 (7.40-12.00) fL Neut % (Auto) (48.0-80.0) % Lymph % (Auto) (16.0-40.0) % Ashley % (Auto) (0.0-15.0) % Eos % (Auto) (0.0-7.0) % Baso % (Auto) (0.0-1.5) % Neut # (Auto) (1.4-5.7) K/uL Lymph # (Auto) (0.6-2.4) K/uL Ashley # (Auto) (0.0-0.8) K/uL Eos # (Auto) (0.0-0.7) K/uL Baso # (Auto) (0.0-0.1) K/uL Add Manual Diff YES Neutrophils % (Manual) 67 (48.0-80.0) % Band Neutrophils % 1 % Lymphocytes % (Manual) 25 (16.0-40.0) % Monocytes % (Manual) 7 (0.0-15.0) % Nucleated RBC % 0.0 /100WBC Absolute Seg Neuts 5.4 (1.4-5.7) Band Neutrophils # 0.1 Lymphocytes # (Manual) 2.0 (0.6-2.4) Monocytes # (Manual) 0.6 (0.0-0.8) Nucleated RBCs # 0 K/uL INR Sodium 143 (136-148) mmol/L Potassium 4.5 (3.5-5.1) mmol/L Chloride 104 (98-107) mmol/L Carbon Dioxide 29.8 (21.0-32.0) mmol/L BUN 19 H (7.0-18.0) mg/dL Creatinine 1.1 (0.8-1.3) mg/dL Est Cr Clr Drug Dosing 52.36 mL/min Estimated GFR (MDRD) > 60.0 ml/min Glucose 103 (74-106) mg/dL Calcium 9.6 (8.5-10.1) mg/dL Total Bilirubin (0.2-1.0) mg/dL AST (15-37) IU/L ALT (14-63) IU/L Alkaline Phosphatase (46-116) U/L Troponin I 0.088 H* 0.070 H* (0.000-0.056) ng/mL B-Natriuretic Peptide (<100) PG/ML Total Protein (6.4-8.2) g/dL Albumin (3.4-5.0) g/dL Globulin (2.6-4.0) g/dL Albumin/Globulin Ratio (0.9-1.6) Prolactin ng/mL Urine Color Urine Appearance Urine pH (5.0-8.0) Ur Specific [place] (1.001-1.035) Urine Protein (NEGATIVE) mg/dL Urine Glucose (UA) (NEGATIVE) mg/dL Urine Ketones (NEGATIVE) mg/dL Urine Occult Blood (NEGATIVE) Urine Nitrite (NEGATIVE) Urine Bilirubin (NEGATIVE) Urine Urobilinogen (<2.0) EU/dL Ur Leukocyte Esterase (NEGATIVE) Urine RBC (0-2/HPF) Urine WBC (0-5/HPF) Ur Epithelial Cells (NONE-FEW) Urine Bacteria (NEGATIVE) Med Orders - Current: Current Medications Acetaminophen (Tylenol) 650 mg PO Q4H PRN PRN Reason: Pain/Fever Aspirin (Aspirin) 81 mg PO DAILY@1700 [facility] Atorvastatin Calcium (Lipitor) 40 mg PO BEDTIME [facility] Bumetanide (Bumex) 2 mg PO DAILY@1400 [facility] Bumetanide (Bumex) 2 mg PO DAILY@0800 [facility] Dabigatran (Pradaxa) 150 mg PO BID [facility] Last Admin: 11/27/18 08:48 Dose: 150 mg Levofloxacin/Dextrose 750 mg/ (Premix) 150 mls @ 100 mls/hr IV Q24H [facility] Last Admin: 11/26/18 18:38 Dose: 100 mls/hr Ondansetron HCl (Zofran) 4 mg IVPUSH Q4H PRN PRN Reason: Nausea/Vomiting Last Admin: 11/27/18 07:39 Dose: 4 mg Potassium Chloride (Klor-Con M20) 20 meq PO TID [facility] Last Admin: 11/27/18 07:31 Dose: 20 meq Sertraline HCl (Zoloft) 100 mg PO DAILY [facility] Last Admin: 11/27/18 08:49 Dose: 100 mg Sodium Chloride (Saline Flush) 10 ml FLUSH ASDIRECTED PRN PRN Reason: Keep Vein Open Sodium Chloride (Saline Flush) 2.5 ml FLUSH ASDIRECTED PRN PRN Reason: Keep Vein Open Discontinued Medications Atorvastatin Calcium (Lipitor) 40 mg PO DAILY [facility] Bumetanide (Bumex) 2 mg PO BID [facility] Last Admin: 11/27/18 08:49 Dose: 2 mg Sodium Chloride (Normal Saline) 1,000 mls @ 125 mls/hr IV ASDIRECTED [facility] Last Admin: 11/26/18 19:37 Dose: 125 mls/hr Ondansetron HCl (Zofran) 4 mg IVPUSH ONETIME ONE Stop: 11/26/18 15:48 Last Admin: 11/26/18 16:00 Dose: 4 mg Ondansetron HCl (Zofran) Confirm Administered Dose 4 mg .ROUTE .STK-MED ONE Stop: 11/26/18 15:50 Last Admin: 11/26/18 16:00 Dose: Not Given Potassium Chloride (Klor-Con M20) 40 meq PO ONETIME ONE Stop: 11/26/18 17:50 Last Admin: 11/26/18 18:41 Dose: 40 meq - Exam General: Alert, Oriented, Cooperative Lungs: Clear to Auscultation, Normal Respiratory Effort, Crackles (left base) Cardiovascular: Regular Rate, Regular Rhythm GI/Abdominal Exam: Normal Bowel Sounds, Soft, Non-Tender, No Distention Extremities: No Pedal Edema Skin: Warm, Dry Neurological: No New Focal Deficit Psy/Mental Status: Alert, Normal Affect, Normal Mood - Problem List Review Problem List Initiated/Reviewed/Updated: Yes - My Orders Last 24 Hours: My Active Orders 11/26/18 17:17 Telemetry Monitoring [Cardiac Monitoring] [RC] Q8H 11/26/18 17:49 Cardiac Monitoring [RC] . DIRECTED Intake and Output Strict [RC] Q12H Orthostatic Vital Signs [RC] ASDIRECTED Vital Signs [RC] PER UNIT ROUTINE CULTURE SPUTUM + SMEAR [RM] Routine Acetaminophen [Tylenol] 650 mg PO Q4H PRN Ondansetron [Zofran] 4 mg IVPUSH Q4H PRN Resuscitation Status Routine 11/26/18 18:00 Levofloxacin/Dextrose 5%-Water [Levaquin in D5W 750 MG/150 ML] 750 mg Premix Bag 1 bag IV Q24H 11/26/18 21:00 Dabigatran [Pradaxa] 150 mg PO BID 11/26/18 22:00 Potassium Chloride [Klor-Con M20] 20 meq PO TID 11/26/18 Dinner Heart Healthy Diet [DIET] 11/27/18 09:00 Sertraline [Zoloft] 100 mg PO DAILY 11/27/18 17:00 Aspirin 81 mg PO DAILY@1700 11/27/18 21:00 atorvaSTATin [Lipitor] 40 mg PO BEDTIME - Plan Plan:: 7. CA Pneumonia- will obtain sputum culture and continue Levaquin, encourage incentive spirometer 8. Syncope- monitor on telemetry, orthostatic vitals normal, no additional episodes, work on accessing pacemaker data 9. Elevated troponin- trended, second trop up from 0.074 to 0.088 and third back down to 0.070 10. Anemia- hx of GI bleed requiring hemicolectomy- denies black/bloody stools, hemoglobin stable 11. Chronic conditions- CHF, hyperlipidemia, Afib- continue home meds, daily weights, strict I/Os for CHF 12. Hypokalemia- resolved Spoke to Dr. Encarnacion, cardiology at [facility] in [place], about the case. He stated that the elevated troponin was from the pneumonia. He stated any patient with CAD and pneumonia should have elevated troponins, recommended outpatient follow up, did not believe patient needed cath at this time. Inquired about accessing pacemaker data, he stated the patient himself should be able to access the data online or the hospital should have the capability. Again recommended follow up with cardiology as outpatient.
[2018-11-27] MEDS: Aspirin 81 MG Tab.Chew PO SCH (17:04)
[2018-11-27] MEDS: Levofloxacin/Dextrose 5%-Water 750 MG in Premix Bag 1 BAG IV SCH (17:19)
[2018-11-28 06:46] LABS: POTASSIUM,K 3.9 mmol/L (3.5-5.1)
[2018-11-28] MEDS: Potassium Chloride 20 MEQ Tab.ER PO SCH ×2 (07:47→13:54)
[2018-11-28] MEDS: Ondansetron 4 MG/2 ML SDV IVPUSH PRN ×2 (07:52→13:53)
[2018-11-28] MEDS ORDERED: Bumetanide 1 MG Tab PO SCH (08:00)
[2018-11-28] MEDS: Sertraline 100 MG Tab PO SCH (08:07)
[2018-11-28] MEDS ORDERED: Docusate Sodium 100 MG Cap PO PRN (10:20)
--- NOTE | 2018-11-28 10:30 | PCM.PN ---
<Emily Gabriel - Last Filed: 11/28/18 10:25> - General Info Date of Service: 11/28/18 Subjective Update: The patient is a 73 year old male who was admitted for syncopal event with pneumonia. Required oxygen yesterday/last night. Off oxygen this morning, feels run down, unsure if he feels up to discharge today, wants to see how the day goes. No events on telemetry overnight and no additional syncopal episodes. - Review of Systems General: Reports: No Symptoms HEENT: Reports: No Symptoms Pulmonary: Reports: Shortness of Breath, Cough Cardiovascular: Reports: No Symptoms Gastrointestinal: Reports: No Symptoms Genitourinary: Reports: No Symptoms Musculoskeletal: Reports: No Symptoms Skin: Reports: No Symptoms Neurological: Reports: No Symptoms Psychiatric: Reports: No Symptoms - Patient Data Vitals - Most Recent: Last Vital Signs Temp 98.7 F 11/28/18 07:00 Pulse 66 11/28/18 03:40 Resp 18 11/28/18 07:00 BP 112/56 L 11/28/18 07:00 Pulse Ox 94 L 11/28/18 07:00 Orthostatic Blood Pressure [ 102/48 Sitting] Weight - Most Recent: 95.164 kg I&O - Last 24 Hours: Intake & Output 11/27/18 11/28/18 11/28/18 22:59 06:59 14:59 Intake Total 1070 100 Output Total 75 300 Balance 995 -200 Lab Results Last 24 Hours: Laboratory Results - last 24 hr 11/28/18 11/28/18 Range/Units 06:00 06:00 WBC 7.77 (4.0-11.0) K/uL RBC 3.47 L (4.50-5.90) M/uL Hgb 9.8 L (13.0-17.0) g/dL Hct 32.0 L (38.0-50.0) % MCV 92.2 (80.0-98.0) fL MCH 28.2 (27.0-32.0) pg MCHC 30.6 L (31.0-37.0) g/dL RDW Std Deviation 46.2 (28.0-62.0) fl RDW Coeff of Jennifer 14 (11.0-15.0) % Plt Count 234 (150-400) K/uL MPV 10.70 (7.40-12.00) fL Neut % (Auto) 66.3 (48.0-80.0) % Lymph % (Auto) 16.2 (16.0-40.0) % [place] % (Auto) 15.1 H (0.0-15.0) % Eos % (Auto) 1.9 (0.0-7.0) % Baso % (Auto) 0.5 (0.0-1.5) % Neut # (Auto) 5.2 (1.4-5.7) K/uL Lymph # (Auto) 1.3 (0.6-2.4) K/uL [place] # (Auto) 1.2 H (0.0-0.8) K/uL Eos # (Auto) 0.2 (0.0-0.7) K/uL Baso # (Auto) 0.0 (0.0-0.1) K/uL Nucleated RBC % 0.0 /100WBC Nucleated RBCs # 0 K/uL Sodium 144 (136-148) mmol/L Potassium 3.9 (3.5-5.1) mmol/L Chloride 105 (98-107) mmol/L Carbon Dioxide 31.0 (21.0-32.0) mmol/L BUN 16 (7.0-18.0) mg/dL Creatinine 1.2 (0.8-1.3) mg/dL Est Cr Clr Drug Dosing 48.00 mL/min Estimated GFR (MDRD) 59.0 ml/min Glucose 104 (74-106) mg/dL Calcium 9.7 (8.5-10.1) mg/dL Med Orders - Current: Current Medications Acetaminophen (Tylenol) 650 mg PO Q4H PRN PRN Reason: Pain/Fever Aspirin (Aspirin) 81 mg PO DAILY@1700 [facility] Last Admin: 11/27/18 17:04 Dose: 81 mg Atorvastatin Calcium (Lipitor) 40 mg PO BEDTIME [facility] Last Admin: 11/27/18 22:43 Dose: 40 mg Bumetanide (Bumex) 2 mg PO DAILY@1400 [facility] Last Admin: 11/27/18 13:46 Dose: 2 mg Bumetanide (Bumex) 2 mg PO DAILY@0800 [facility] Last Admin: 11/28/18 08:06 Dose: 2 mg Dabigatran (Pradaxa) 150 mg PO BID [facility] Last Admin: 11/28/18 08:05 Dose: 150 mg Docusate Sodium (Colace) 100 mg PO BID PRN PRN Reason: Constipation Levofloxacin/Dextrose 750 mg/ (Premix) 150 mls @ 100 mls/hr IV Q24H [facility] Last Admin: 11/27/18 17:19 Dose: 100 mls/hr Ondansetron HCl (Zofran) 4 mg IVPUSH Q4H PRN PRN Reason: Nausea/Vomiting Last Admin: 11/28/18 07:52 Dose: 4 mg Potassium Chloride (Klor-Con M20) 20 meq PO TID [facility] Last Admin: 11/28/18 07:47 Dose: 20 meq Sertraline HCl (Zoloft) 100 mg PO DAILY [facility] Last Admin: 11/28/18 08:07 Dose: 100 mg Sodium Chloride (Saline Flush) 10 ml FLUSH ASDIRECTED PRN PRN Reason: Keep Vein Open Sodium Chloride (Saline Flush) 2.5 ml FLUSH ASDIRECTED PRN PRN Reason: Keep Vein Open Discontinued Medications Atorvastatin Calcium (Lipitor) 40 mg PO DAILY [facility] Bumetanide (Bumex) 2 mg PO BID [facility] Last Admin: 11/27/18 08:49 Dose: 2 mg Sodium Chloride (Normal Saline) 1,000 mls @ 125 mls/hr IV ASDIRECTED [facility] Last Admin: 11/26/18 19:37 Dose: 125 mls/hr Ondansetron HCl (Zofran) 4 mg IVPUSH ONETIME ONE Stop: 11/26/18 15:48 Last Admin: 11/26/18 16:00 Dose: 4 mg Ondansetron HCl (Zofran) Confirm Administered Dose 4 mg .ROUTE .STK-MED ONE Stop: 11/26/18 15:50 Last Admin: 11/26/18 16:00 Dose: Not Given Potassium Chloride (Klor-Con M20) 40 meq PO ONETIME ONE Stop: 11/26/18 17:50 Last Admin: 11/26/18 18:41 Dose: 40 meq - Exam General: Alert, Oriented, Cooperative Lungs: Normal Respiratory Effort, Wheezing, Other (improved on exam compared to admission date) Cardiovascular: Regular Rate, Regular Rhythm GI/Abdominal Exam: Normal Bowel Sounds, Soft, Non-Tender, No Distention Extremities: No Pedal Edema Skin: Warm, Dry, Intact Neurological: No New Focal Deficit Psy/Mental Status: Alert, Normal Affect, Normal Mood - Problem List & Annotations (1) CAP (community acquired pneumonia) SNOMED Code(s): 907706186 Code(s): J18.9 - PNEUMONIA, UNSPECIFIED ORGANISM Status: Acute Current Visit: Yes (2) Pacemaker SNOMED Code(s): 902227015 Code(s): Z95.0 - PRESENCE OF CARDIAC PACEMAKER Status: Acute Current Visit: Yes (3) Chronic anemia SNOMED Code(s): 416020487 Code(s): D64.9 - ANEMIA, UNSPECIFIED Status: Chronic Current Visit: Yes (4) Afib SNOMED Code(s): 29913492 Code(s): I48.91 - UNSPECIFIED ATRIAL FIBRILLATION Status: Chronic Current Visit: Yes (5) Hyperlipidemia SNOMED Code(s): 66209212 Code(s): E78.5 - HYPERLIPIDEMIA, UNSPECIFIED Status: Chronic Current Visit: Yes (6) Hypokalemia SNOMED Code(s): 25755006 Code(s): E87.6 - HYPOKALEMIA Status: Resolved Current Visit: Yes (7) Elevated troponin SNOMED Code(s): 521093079, 418095145, 918228721 Code(s): R74.8 - ABNORMAL LEVELS OF OTHER SERUM ENZYMES Status: Acute Current Visit: Yes (8) History of CHF (congestive heart failure) SNOMED Code(s): 839862327 Code(s): Z86.79 - PERSONAL HISTORY OF OTHER DISEASES OF THE CIRCULATORY SYSTEM Status: Chronic Current Visit: Yes (9) Syncope SNOMED Code(s): 642565521 Code(s): R55 - SYNCOPE AND COLLAPSE Status: Acute Current Visit: Yes (10) Coronary arteriosclerosis, CAD SNOMED Code(s): 84782136 Code(s): I25.10 - ATHSCL HEART DISEASE OF [place] CORONARY ARTERY W/O ANG PCTRS Status: Chronic Current Visit: No - Problem List Review Problem List Initiated/Reviewed/Updated: Yes - My Orders Last 24 Hours: My Active Orders 11/27/18 11:24 Incentive Spirometry [RT Incentive Spirometry] [RC] Q2HWA 11/27/18 17:00 Aspirin 81 mg PO DAILY@1700 11/27/18 21:00 atorvaSTATin [Lipitor] 40 mg PO BEDTIME 11/28/18 10:14 Consult to Physician [CONS] Routine 11/28/18 10:15 Notify Provider Consults [RC] ASDIRECTED 11/28/18 10:20 Docusate Sodium [Colace] 100 mg PO BID PRN - Plan Plan:: 1. CA Pneumonia- will obtain sputum culture and continue Levaquin, encourage incentive spirometer. Required oxygen last night but not currently. 2. Syncope- monitor on telemetry, orthostatic vitals normal, no additional episodes, consult Dr. Lopez, to interrogate pacemaker data 3. Elevated troponin- trended, second trop up from 0.074 to 0.088 and third back down to 0.070, per cards in [place], not worrisome-see below 4. Anemia- hx of GI bleed requiring hemicolectomy- denies black/bloody stools, hemoglobin stable 5. Chronic conditions- CHF, hyperlipidemia, Afib- continue home meds, daily weights, strict I/Os for CHF Spoke to Dr. Encarnacion, cardiology at [facility] in [place] on 11/27/18, about the case. He stated that the elevated troponin was from the pneumonia. He stated any patient with CAD and pneumonia should have elevated troponins, recommended outpatient follow up, did not believe patient needed cath at this time. Inquired about accessing pacemaker data, he stated the patient himself should be able to access the data online or the hospital should have the capability. Again recommended follow up with cardiology as outpatient. <Uziel Humphrey - Last Filed: 11/28/18 13:32> - General Info Admission Dx/Problem (Free Text): I have seen and examined the patient independently of Dr. Harvey DO. I have reviewed and agree with the plan of care as outlined for this patient by her. I have discussed the case with her. Please see orders. - Patient Data Vitals - Most Recent: Last Vital Signs Temp 35.2 C 11/28/18 11:00 Pulse 62 11/28/18 11:00 Resp 16 11/28/18 11:00 BP 126/68 11/28/18 11:00 Pulse Ox 94 L 11/28/18 11:00 Orthostatic Blood Pressure [ 102/48 Sitting] I&O - Last 24 Hours: Intake & Output 11/27/18 11/28/18 11/28/18 22:59 06:59 14:59 Intake Total 1070 100 Output Total 75 300 Balance 995 -200 Lab Results Last 24 Hours: Laboratory Results - last 24 hr 11/28/18 11/28/18 Range/Units 06:00 06:00 WBC 7.77 (4.0-11.0) K/uL RBC 3.47 L (4.50-5.90) M/uL Hgb 9.8 L (13.0-17.0) g/dL Hct 32.0 L (38.0-50.0) % MCV 92.2 (80.0-98.0) fL MCH 28.2 (27.0-32.0) pg MCHC 30.6 L (31.0-37.0) g/dL RDW Std Deviation 46.2 (28.0-62.0) fl RDW Coeff of Jennifer 14 (11.0-15.0) % Plt Count 234 (150-400) K/uL MPV 10.70 (7.40-12.00) fL Neut % (Auto) 66.3 (48.0-80.0) % Lymph % (Auto) 16.2 (16.0-40.0) % [place] % (Auto) 15.1 H (0.0-15.0) % Eos % (Auto) 1.9 (0.0-7.0) % Baso % (Auto) 0.5 (0.0-1.5) % Neut # (Auto) 5.2 (1.4-5.7) K/uL Lymph # (Auto) 1.3 (0.6-2.4) K/uL [place] # (Auto) 1.2 H (0.0-0.8) K/uL Eos # (Auto) 0.2 (0.0-0.7) K/uL Baso # (Auto) 0.0 (0.0-0.1) K/uL Nucleated RBC % 0.0 /100WBC Nucleated RBCs # 0 K/uL Sodium 144 (136-148) mmol/L Potassium 3.9 (3.5-5.1) mmol/L Chloride 105 (98-107) mmol/L Carbon Dioxide 31.0 (21.0-32.0) mmol/L BUN 16 (7.0-18.0) mg/dL Creatinine 1.2 (0.8-1.3) mg/dL Est Cr Clr Drug Dosing 48.00 mL/min Estimated GFR (MDRD) 59.0 ml/min Glucose 104 (74-106) mg/dL Calcium 9.7 (8.5-10.1) mg/dL Med Orders - Current: Current Medications Acetaminophen (Tylenol) 650 mg PO Q4H PRN PRN Reason: Pain/Fever Last Admin: 11/28/18 10:50 Dose: 650 mg Aspirin (Aspirin) 81 mg PO DAILY@[facility] Last Admin: 11/27/18 17:04 Dose: 81 mg Atorvastatin Calcium (Lipitor) 40 mg PO BEDTIME [facility] Last Admin: 11/27/18 22:43 Dose: 40 mg Bumetanide (Bumex) 2 mg PO DAILY@[facility] Last Admin: 11/27/18 13:46 Dose: 2 mg Bumetanide (Bumex) 2 mg PO DAILY@0800 [facility] Last Admin: 11/28/18 08:06 Dose: 2 mg Dabigatran (Pradaxa) 150 mg PO BID [facility] Last Admin: 11/28/18 08:05 Dose: 150 mg Docusate Sodium (Colace) 100 mg PO BID PRN PRN Reason: Constipation Last Admin: 11/28/18 10:50 Dose: 100 mg Levofloxacin/Dextrose 750 mg/ (Premix) 150 mls @ 100 mls/hr IV Q24H [facility] Last Admin: 11/27/18 17:19 Dose: 100 mls/hr Ondansetron HCl (Zofran) 4 mg IVPUSH Q4H PRN PRN Reason: Nausea/Vomiting Last Admin: 11/28/18 07:52 Dose: 4 mg Potassium Chloride (Klor-Con M20) 20 meq PO TID [facility] Last Admin: 11/28/18 07:47 Dose: 20 meq Sertraline HCl (Zoloft) 100 mg PO DAILY [facility] Last Admin: 11/28/18 08:07 Dose: 100 mg Sodium Chloride (Saline Flush) 10 ml FLUSH ASDIRECTED PRN PRN Reason: Keep Vein Open Sodium Chloride (Saline Flush) 2.5 ml FLUSH ASDIRECTED PRN PRN Reason: Keep Vein Open Discontinued Medications Atorvastatin Calcium (Lipitor) 40 mg PO DAILY [facility] Bumetanide (Bumex) 2 mg PO BID [facility] Last Admin: 11/27/18 08:49 Dose: 2 mg Sodium Chloride (Normal Saline) 1,000 mls @ 125 mls/hr IV ASDIRECTED [facility] Last Admin: 11/26/18 19:37 Dose: 125 mls/hr Ondansetron HCl (Zofran) 4 mg IVPUSH ONETIME ONE Stop: 11/26/18 15:48 Last Admin: 11/26/18 16:00 Dose: 4 mg Ondansetron HCl (Zofran) Confirm Administered Dose 4 mg .ROUTE .STK-MED ONE Stop: 11/26/18 15:50 Last Admin: 11/26/18 16:00 Dose: Not Given Potassium Chloride (Klor-Con M20) 40 meq PO ONETIME ONE Stop: 11/26/18 17:50 Last Admin: 11/26/18 18:41 Dose: 40 meq
[2018-11-28] MEDS: Bumetanide 1 MG Tab PO SCH (13:55)
[2018-11-28] MEDS: Aspirin 81 MG Tab.Chew PO SCH (17:13)
[2018-11-28] MEDS: Levofloxacin/Dextrose 5%-Water 750 MG in Premix Bag 1 BAG IV SCH (17:14)
--- NOTE | 2018-11-28 17:39 | PCM.PRNOTE ---
- Free Text/Narrative Note: Device interrogation 11/28/2018 Company [employer] Model Renée XT DR MRI [id number] Mode DDDR LRL 60 % paced V paced 99.6% intrinsic rhythm dependent Battery life 10.59yrs Atrial lead sensin.8 mV capture threshold: 0.4mV@0.4ms impedance: 513 ohms Ventricular lead sensing: paced capture threshold: NA impedance: 418 ohms episode: 11/26/2018 VT 3 mins Imp normally functioning PPM, sustained VT plan ischemic work up
--- NOTE | 2018-11-28 17:44 | PCM.DCSUM1 ---
<Emily Gabriel - Last Filed: 11/28/18 17:46> Discharge Summary - Hospital Course HPI Initial Comments: Admission Date: 11/26/18 Discharge Date: 11/28/18 Admission Diagnosis: 1. Community acquired pneumonia 2. Syncope 3. Elevated troponin 4. Anemia with hx of GI bleed 5. Hypokalemia 6. Chronic conditions- CHF, hyperlipidemia, pacemaker, Afib Discharge Diagnosis: 1. Community acquired pneumonia 2. Syncope- likely secondary to run of VT 3. Elevated troponin- improved 4. Anemia with hx of GI bleed- stable, no acute bleed 5. Hypokalemia- resolved 6. Chronic conditions- CHF, hyperlipidemia, pacemaker, Afib Procedures: None Consults: Cardiology Hospital Course: The patient is a 73-year-old male who presented to the ER after syncopal event with associated shortness of breath but no chest pain. He recently had a pacemaker implanted at the end August or early September. In the ER workup showed a left lower pneumonia on chest x-ray but no white count. CT of the head showed no acute intracranial processes. Lab work found him to be slightly anemic. He had a GI bleed in June requiring a right hemicolectomy. He was also hypokalemic and had an elevated troponin. His EKG was atrial- ventricularly paced. He was admitted to medical surgical floor for observation. For his community-acquired pneumonia, we started him on Levaquin, obtain a sputum culture and encouraged incentive spirometry. For syncope, we monitored him on telemetry without any significant events or additional syncopal events. We discussed interrogating the device with cardiology in [place], and they stated the patient should be able to access this or our hospital should be able to. If not, they would investigate it at his follow-up appointment after discharge. The patient's family did not have access to that information. We consulted our winery cellar hand who evaluated the patient and interrogated his pacemaker. He found a 3 minute run of VT at the time of the syncopal episode. For the elevated troponins, they were treneded and went from 0.074 to 0.088 and finally 0.070. This was also discussed with the winery cellar hand in [place], Dr. Encarnacion, He stated that the troponins were elevated due to his pneumonia. He stated all patients with CAD who developed pneumonia should have elevated troponins. The patients chronic anemia, was monitored and hemoglobin was stable. He had no black or bloody stools. The patients hypokalemia, was replaced and resolved. For the patients chronic condition, he was continued on his home meds and monitored on telemetry. Our winery cellar hand evaluated the patient and the pacemaker and data and did not think it was best to discharge the patient without further workup. he believed the patient needed a inpatient stress test or labour market economist so he recommended transfer. The case was discussed with Dr. Mon , cardiology, at [facility] in [place] who agreed. He had us admit to hospitalist, Dr. Gagnon, who accepted the patient at 1740. Disposition: Transfer to [facility] Discharge Condition: vitals stable, tolerating oral diet, ambulating without difficulty, symptom improvement Discharge Instructions: heart diet as tolerated, activity as tolerated, take medications as prescribed. Symptoms to report to physician include syncope, black/bloody stools, fever/chills, chest pain, shortness of breath, abdominal pain, erythema, drainage/discharge, or not improving as expected. Discharge Medications: Aspirin 81 mg PO DAILY Bumetanide [Bumex] 2 mg PO BID Dabigatran [Pradaxa] 150 mg PO BID Mirabegron [Myrbetriq] 1 tab PO DAILY Potassium Chloride 20 meq PO TID Sertraline HCl [Zoloft] 100 mg PO DAILY Tamsulosin [Flomax] 1 cap PO DAILY atorvaSTATin Calcium [Lipitor] 40 mg PO DAILY Levofloxacin/Dextrose 5%-Water [Levaquin in D5W 750 MG/150 ML] 750 mg IV Q24H - Discharge Data Discharge Date: 11/28/18 Discharge Disposition: DC/Tfer to Acute Hospital 02 Condition: Stable - Discharge Diagnosis/Problem(s) (1) CAP (community acquired pneumonia) SNOMED Code(s): 652090334 ICD Code: J18.9 - PNEUMONIA, UNSPECIFIED ORGANISM Status: Acute (2) Pacemaker SNOMED Code(s): 490353575 ICD Code: Z95.0 - PRESENCE OF CARDIAC PACEMAKER Status: Acute (3) Chronic anemia SNOMED Code(s): 168165516 ICD Code: D64.9 - ANEMIA, UNSPECIFIED Status: Chronic (4) Afib SNOMED Code(s): 75808727 ICD Code: I48.91 - UNSPECIFIED ATRIAL FIBRILLATION Status: Chronic (5) Hyperlipidemia SNOMED Code(s): 14330088 ICD Code: E78.5 - HYPERLIPIDEMIA, UNSPECIFIED Status: Chronic (6) Hypokalemia SNOMED Code(s): 89595474 ICD Code: E87.6 - HYPOKALEMIA Status: Resolved (7) Elevated troponin SNOMED Code(s): 154194581, 888687030, 573178112 ICD Code: R74.8 - ABNORMAL LEVELS OF OTHER SERUM ENZYMES Status: Acute (8) History of CHF (congestive heart failure) SNOMED Code(s): 332379071 ICD Code: Z86.79 - PERSONAL HISTORY OF OTHER DISEASES OF THE CIRCULATORY SYSTEM Status: Chronic (9) Syncope SNOMED Code(s): 253854560 ICD Code: R55 - SYNCOPE AND COLLAPSE Status: Acute (10) Coronary arteriosclerosis, CAD SNOMED Code(s): 21764155 ICD Code: I25.10 - ATHSCL HEART DISEASE OF [place] CORONARY ARTERY W/O ANG PCTRS Status: Chronic - Patient Summary/Data Consults: Consultations 11/28/18 10:14 Consult to Physician [CONS] Routine - Patient Instructions Diet: Heart Healthy Diet - Discharge Plan *PRESCRIPTION DRUG MONITORING PROGRAM REVIEWED*: No *COPY OF PRESCRIPTION DRUG MONITORING REPORT IN PATIENT TORI: No Home Medications: Home Meds Aspirin 81 mg PO DAILY 11/26/18 [History] Bumetanide [Bumex] 2 mg PO BID 11/26/18 [History] Dabigatran [Pradaxa] 150 mg PO BID 11/26/18 [History] Mirabegron [Myrbetriq] 1 tab PO DAILY 11/26/18 [History] Potassium Chloride 20 meq PO TID 11/26/18 [History] Sertraline HCl [Zoloft] 100 mg PO DAILY 11/26/18 [History] Tamsulosin [Flomax] 1 cap PO DAILY 11/26/18 [History] atorvaSTATin Calcium [Lipitor] 40 mg PO DAILY 11/26/18 [History] Levofloxacin/Dextrose 5%-Water [Levaquin in D5W 750 MG/150 ML] 750 mg IV Q24H bag 11/28/18 [Rx] Patient Handouts: Syncope, [id number], Community-Acquired Pneumonia, Adult, [id number] Referrals: PCP,Unknown [Primary Care Provider] - - Discharge Summary/Plan Comment DC Time >30 min.: Yes - Patient Data Vitals - Most Recent: Last Vital Signs Temp 95.4 F 11/28/18 11:00 Pulse 62 11/28/18 11:00 Resp 16 11/28/18 11:00 BP 126/68 11/28/18 11:00 Pulse Ox 94 L 11/28/18 11:00 Orthostatic Blood Pressure [ 102/48 Sitting] Weight - Most Recent: 95.164 kg I&O - Last 24 hours: Intake & Output 11/28/18 11/28/18 11/28/18 06:59 14:59 22:59 Intake Total 100 Output Total 300 Balance -200 Lab Results - Last 24 hrs: Laboratory Results - last 24 hr 11/28/18 11/28/18 Range/Units 06:00 06:00 WBC 7.77 (4.0-11.0) K/uL RBC 3.47 L (4.50-5.90) M/uL Hgb 9.8 L (13.0-17.0) g/dL Hct 32.0 L (38.0-50.0) % MCV 92.2 (80.0-98.0) fL MCH 28.2 (27.0-32.0) pg MCHC 30.6 L (31.0-37.0) g/dL RDW Std Deviation 46.2 (28.0-62.0) fl RDW Coeff of Jennifer 14 (11.0-15.0) % Plt Count 234 (150-400) K/uL MPV 10.70 (7.40-12.00) fL Neut % (Auto) 66.3 (48.0-80.0) % Lymph % (Auto) 16.2 (16.0-40.0) % Newberry % (Auto) 15.1 H (0.0-15.0) % Eos % (Auto) 1.9 (0.0-7.0) % Baso % (Auto) 0.5 (0.0-1.5) % Neut # (Auto) 5.2 (1.4-5.7) K/uL Lymph # (Auto) 1.3 (0.6-2.4) K/uL Newberry # (Auto) 1.2 H (0.0-0.8) K/uL Eos # (Auto) 0.2 (0.0-0.7) K/uL Baso # (Auto) 0.0 (0.0-0.1) K/uL Nucleated RBC % 0.0 /100WBC Nucleated RBCs # 0 K/uL Sodium 144 (136-148) mmol/L Potassium 3.9 (3.5-5.1) mmol/L Chloride 105 (98-107) mmol/L Carbon Dioxide 31.0 (21.0-32.0) mmol/L BUN 16 (7.0-18.0) mg/dL Creatinine 1.2 (0.8-1.3) mg/dL Est Cr Clr Drug Dosing 48.00 mL/min Estimated GFR (MDRD) 59.0 ml/min Glucose 104 (74-106) mg/dL Calcium 9.7 (8.5-10.1) mg/dL Med Orders - Current: Current Medications Acetaminophen (Tylenol) 650 mg PO Q4H PRN PRN Reason: Pain/Fever Last Admin: 11/28/18 10:50 Dose: 650 mg Aspirin (Aspirin) 81 mg PO DAILY@1700 [facility] Last Admin: 11/28/18 17:13 Dose: 81 mg Atorvastatin Calcium (Lipitor) 40 mg PO BEDTIME [facility] Last Admin: 11/27/18 22:43 Dose: 40 mg Bumetanide (Bumex) 2 mg PO DAILY@1400 [facility] Last Admin: 11/28/18 13:55 Dose: 2 mg Bumetanide (Bumex) 2 mg PO DAILY@0800 [facility] Last Admin: 11/28/18 08:06 Dose: 2 mg Dabigatran (Pradaxa) 150 mg PO BID [facility] Last Admin: 11/28/18 08:05 Dose: 150 mg Docusate Sodium (Colace) 100 mg PO BID PRN PRN Reason: Constipation Last Admin: 11/28/18 10:50 Dose: 100 mg Levofloxacin/Dextrose 750 mg/ (Premix) 150 mls @ 100 mls/hr IV Q24H [facility] Last Admin: 11/28/18 17:14 Dose: 100 mls/hr Ondansetron HCl (Zofran) 4 mg IVPUSH Q4H PRN PRN Reason: Nausea/Vomiting Last Admin: 11/28/18 13:53 Dose: 4 mg Potassium Chloride (Klor-Con M20) 20 meq PO TID [facility] Last Admin: 11/28/18 13:54 Dose: 20 meq Sertraline HCl (Zoloft) 100 mg PO DAILY [facility] Last Admin: 11/28/18 08:07 Dose: 100 mg Sodium Chloride (Saline Flush) 10 ml FLUSH ASDIRECTED PRN PRN Reason: Keep Vein Open Sodium Chloride (Saline Flush) 2.5 ml FLUSH ASDIRECTED PRN PRN Reason: Keep Vein Open Discontinued Medications Atorvastatin Calcium (Lipitor) 40 mg PO DAILY [facility] Bumetanide (Bumex) 2 mg PO BID [facility] Last Admin: 11/27/18 08:49 Dose: 2 mg Sodium Chloride (Normal Saline) 1,000 mls @ 125 mls/hr IV ASDIRECTED [facility] Last Admin: 11/26/18 19:37 Dose: 125 mls/hr Ondansetron HCl (Zofran) 4 mg IVPUSH ONETIME ONE Stop: 11/26/18 15:48 Last Admin: 11/26/18 16:00 Dose: 4 mg Ondansetron HCl (Zofran) Confirm Administered Dose 4 mg .ROUTE .STK-MED ONE Stop: 11/26/18 15:50 Last Admin: 11/26/18 16:00 Dose: Not Given Potassium Chloride (Klor-Con M20) 40 meq PO ONETIME ONE Stop: 11/26/18 17:50 Last Admin: 11/26/18 18:41 Dose: 40 meq <Uziel Humphrey - Last Filed: 11/29/18 16:38> Discharge Summary - Hospital Course HPI Initial Comments: I have seen and examined the patient independently of Dr. Harvey DO. I have reviewed and agree with the plan of care as outlined for this patient by her. I have discussed the case with her. Please see orders. - Patient Summary/Data Consults: Consultations 11/28/18 10:14 Consult to Physician [CONS] Routine - Patient Data Vitals - Most Recent: Last Vital Signs Temp 36.5 C 11/28/18 18:30 Pulse 70 11/28/18 18:30 Resp 20 11/28/18 18:30 BP 115/58 L 11/28/18 18:30 Pulse Ox 97 11/28/18 18:30 Orthostatic Blood Pressure [ 102/48 Sitting] Med Orders - Current: Current Medications Discontinued Medications Acetaminophen (Tylenol) 650 mg PO Q4H PRN PRN Reason: Pain/Fever Last Admin: 11/28/18 10:50 Dose: 650 mg Aspirin (Aspirin) 81 mg PO DAILY@1700 [facility] Last Admin: 11/28/18 17:13 Dose: 81 mg Atorvastatin Calcium (Lipitor) 40 mg PO DAILY [facility] Atorvastatin Calcium (Lipitor) 40 mg PO BEDTIME [facility] Last Admin: 11/27/18 22:43 Dose: 40 mg Bumetanide (Bumex) 2 mg PO BID [facility] Last Admin: 11/27/18 08:49 Dose: 2 mg Bumetanide (Bumex) 2 mg PO DAILY@1400 [facility] Last Admin: 11/28/18 13:55 Dose: 2 mg Bumetanide (Bumex) 2 mg PO DAILY@0800 [facility] Last Admin: 11/28/18 08:06 Dose: 2 mg Dabigatran (Pradaxa) 150 mg PO BID [facility] Last Admin: 11/28/18 08:05 Dose: 150 mg Docusate Sodium (Colace) 100 mg PO BID PRN PRN Reason: Constipation Last Admin: 11/28/18 10:50 Dose: 100 mg Sodium Chloride (Normal Saline) 1,000 mls @ 125 mls/hr IV ASDIRECTED [facility] Last Admin: 11/26/18 19:37 Dose: 125 mls/hr Levofloxacin/Dextrose 750 mg/ (Premix) 150 mls @ 100 mls/hr IV Q24H [facility] Last Admin: 11/28/18 17:14 Dose: 100 mls/hr Ondansetron HCl (Zofran) 4 mg IVPUSH ONETIME ONE Stop: 11/26/18 15:48 Last Admin: 11/26/18 16:00 Dose: 4 mg Ondansetron HCl (Zofran) Confirm Administered Dose 4 mg .ROUTE .STK-MED ONE Stop: 11/26/18 15:50 Last Admin: 11/26/18 16:00 Dose: Not Given Ondansetron HCl (Zofran) 4 mg IVPUSH Q4H PRN PRN Reason: Nausea/Vomiting Last Admin: 11/28/18 13:53 Dose: 4 mg Potassium Chloride (Klor-Con M20) 40 meq PO ONETIME ONE Stop: 11/26/18 17:50 Last Admin: 11/26/18 18:41 Dose: 40 meq Potassium Chloride (Klor-Con M20) 20 meq PO TID [facility] Last Admin: 11/28/18 13:54 Dose: 20 meq Sertraline HCl (Zoloft) 100 mg PO DAILY [facility] Last Admin: 11/28/18 08:07 Dose: 100 mg Sodium Chloride (Saline Flush) 10 ml FLUSH ASDIRECTED PRN PRN Reason: Keep Vein Open Sodium Chloride (Saline Flush) 2.5 ml FLUSH ASDIRECTED PRN PRN Reason: Keep Vein Open
--- NOTE | 2018-11-28 19:36 | CONS ---
DATE OF CONSULTATION: DATE OF : 1945 PRIMARY CARE PHYSICIAN: Unknown PCP REASON FOR CONSULTATION: Syncope. HISTORY: This is a 73-year-old male with past medical history of atrial fibrillation; CHF; hypertension; dual-chamber pacemaker due to complete heart block; history of CAD, multiple stents, who was admitted in the hospital since November 26, 2018, and I was asked to see him for evaluation for his syncope. Apparently, while he was in the car driving towards [place] to visit his cousin, he all of a sudden was noticed by his daughter that he was not responding, and it was lasting about 2-3 minutes and then when he woke up, he did not remember what happened. His daughter noticed that both of his arms seemed to be shaky slightly, but not the other parts of his body. The patient could not remember what happened and when that happened. He denied chest pain, shortness of breath. He also was currently treated for pneumonia as well on the left side with IV antibiotics. He was admitted in [facility] for passing out spell. He was told that he has complete heart block and has dual-chamber pacemaker since September. We do not have available records to review. His troponin has been mildly elevated, but there is no peaking. His troponin is ranging between 0.074, 0.088, and 0.070. He denies chest pain. PAST MEDICAL HISTORY: Including paroxysmal atrial fibrillation; history of heart failure; hypertension; hyperlipidemia; CAD, status post multiple stents, last time in 2014. ALLERGIES: He is allergic to bee venom, protein. MEDICATIONS: Includin. Aspirin. 2. Lipitor 40. 3. Pradaxa 150 twice a day. 4. Bumex 2 mg twice a day. 5. Potassium 20 mEq 3 times a day. 6. Levaquin IV every 24 hours. SOCIAL HISTORY: He was former smoker as well as a heavy drinker in the past, but he quit for 4 years. No drug use. No family history of CAD. PHYSICAL EXAMINATION: VITAL SIGNS: The current blood pressure is 126/68, heart rate of 62, temperature 95.4, O2 saturation 94 on room air, and respirations 16. HEENT: Not pale. No jaundice. No JVD noted. HEART: Normal S1, S2. No murmur. Regular rate and rhythm. LUNGS: Clear. No wheezing. No crackles. ABDOMEN: Soft, nontender. Bowel sounds are present. No hepatosplenomegaly. EXTREMITIES: Legs, trace edema. INVESTIGATIONS: EKG shows A-paced and V-paced. CBC shows WBC 7, hematocrit of 32, hemoglobin of 9.8, and platelet is 234. Sodium 144, potassium 3.9, chloride 105, bicarb 31, BUN 16, creatinine 1.2. Troponin 0.074, 0.088, 0.070. BNP 453. Urinalysis is negative for infection. Pacemaker interrogation showed episodes of VT, 3 minutes, at the time that he passed out with the syncopal episodes. ASSESSMENT AND PLAN: This is a 73-year-old male with history of coronary artery disease, multiple stents; history of hypertension; hyperlipidemia; former smoker; and complete heart block, pacer dependent, dual-chamber pacemaker, who presented hospital with recurrent syncopal episode with sustained ventricular tachycardia of 3 minutes, mildly elevated troponin. I had a discussion with the legal examiner on- call in [place] in [place]. He had an angiogram done 2 years ago. It showed nonobstructive RCA, but I do not have the report to review. I do feel that with sustained VT, he needs inpatient stress test or ischemic workup before discharging him. Because currently we cannot do a stress test in the hospital, recommended to be transferred back to [place] for inpatient workup and Cardiology in [facility] accepted the patient. MAGUE DEL CASTILLO /[id number]
== END 2018-11-28 19:00 ==
LOC: MW.ED 15:31 → MW.MS 17:11
PROVIDERS: ADMIT Internal Medicine; ATTEND Internal Medicine
DX: R55 Syncope and collapse (principal); J18.1 Lobar pneumonia, unspecified organism; I47.1 Supraventricular tachycardia; E87.6 Hypokalemia; D64.9 Anemia, unspecified; I11.0 Hypertensive heart disease with heart failure; I50.9 Heart failure, unspecified; I25.10 Atherosclerotic heart disease of native coronary artery without angina pectoris; I44.2 Atrioventricular block, complete; I48.0 Paroxysmal atrial fibrillation; I25.2 Old myocardial infarction; E78.00 Pure hypercholesterolemia, unspecified; Z90.49 Acquired absence of other specified parts of digestive tract; Z91.030 Bee allergy status; Z95.0 Presence of cardiac pacemaker; Z95.5 Presence of coronary angioplasty implant and graft; Z87.891 Personal history of nicotine dependence; Z79.82 Long term (current) use of aspirin; Z79.899 Other long term (current) drug therapy
CPT/HCPCS: 36415; 70450; 71045; 80048; 80053; 81001; 83880; 84146; 84484; 85025; 85610; 93005; 96365; 96366; 96375; 96376; 99285; A9270; G0378; J1956; J2405; J7040; 96374